=== PATIENT | female | born 1975 | race Caucasian/White ===

== ENCOUNTER 2021-06-05 07:31 | Day surgery (SDC) | payer OTHER ==
[~2021-06-05 07:31] MED LIST: CHOL10002 PO; DOCU100 PO; FOLI1 PO; FOLI400 PO; KETO10 PO; Oxycodone HCl5 M1; Percocet 5-3251 EACH PO; SULTRIDS PO; TAMS.4ER PO; Verotin-Gr Cap1 EACH PO; Vitafol-Ob+Dha1 EACH PO; Zofran Odt8 MG SL
== END 2021-06-05 12:00 | disposition home or self-care (01) ==
LOC: MOI MAM 07:31
DX: R92.1 Mammographic calcification found on diagnostic imaging of breast (principal)
CPT/HCPCS: 19281

== ENCOUNTER 2021-06-05 09:07 | Day surgery (SDC) | payer OTHER ==
[~2021-06-05] VITALS: Ht 173 cm; Wt 58.7 kg
--- NOTE | 2021-06-05 09:49 | NUR ---
Ambulatory in Day Surgery History, Chart, Medications and Allergies reviewed before start of procedure.Patient confirms NPO status and agrees with scheduled surgery. Patient reports completing Chlorhexadine shower X2 prior to admission to hospital. UNABLE TO CHLOREHEXIDE WIPE TO TO BANDAGE FROM RADIOLOGY WIRE PLACEMENT
--- NOTE | 2021-06-05 10:34 | NUR ---
06/05/21 1034 Usama Barahona ORD.MMA AND ORD.CE2 OPENED ROOM SD.BS REMOVED DRESSING AT BEDSIDE, TRIMMED WIRE TO LENGTH, TRIMMED HAIR AT AEREOLAR HAIR VIA SCISSORS.
--- NOTE | 2021-06-05 13:32 | NUR ---
Discharge instructions reviewed with patient. Patient verbalizes understanding. Copy given to patient to take home.
--- NOTE | 2021-06-05 13:35 | NUR ---
Dressing to procedure site clean, dry, intact with no visible drainage, swelling, erythema or bruising noted. Discharged via wheelchair to private car for ride home.
== END 2021-06-05 13:40 | disposition home or self-care (01) ==
LOC: ORSCMMR 09:07 → ORD 10:45 → ORSCMMR 10:45
PROVIDERS: Surgery
PROC: 0HBT0ZX Excision of Right Breast, Open Approach, Diagnostic (ICD-10-PCS; principal; 2021-06-05 10:00)
DX: R92.1 Mammographic calcification found on diagnostic imaging of breast (principal); R22.31 Localized swelling, mass and lump, right upper limb; Z95.0 Presence of cardiac pacemaker
CPT/HCPCS: 88305; A9270; J0690; J1100; J2250; J2370; J2405; J2704; J3010; J7120; Q9968

== ENCOUNTER → 2021-08-04 | Outpatient (CLI) | payer OTHER ==
[2021-08-08 11:10] LABS: HPV 16 Negative (Negative); HPV 18 Negative (Negative); HPV OTHER HR TYPES Negative (Negative)
== END | disposition home or self-care (01) ==
LOC: LAB 13:04 → LAB SHORT 13:04
PROVIDERS: Nurse Practitioner Family
DX: Z01.419 Encounter for gynecological examination (general) (routine) without abnormal findings (principal)
CPT/HCPCS: 87624; G0145